=== PATIENT | female | born 1960 | race Caucasian/White ===

== ENCOUNTER 2022-01-21 12:44 | Emergency (ER) | payer OTHER, SELFPAY ==
[2022-01-21 12:47] VITALS: BP 121/80; PULSE 85; RESP 16; TEMP 36.4; O2SAT 99; BMI 20.2
--- NOTE | 2022-01-21 13:07 | ED_ITS ---
HPI - General Adult General Time Seen by Provider: 13:07 Date Seen: 01/21/22 Chief complaint: Unspecified Complaint, Adult Stated complaint: Wants prescription for Adderall refilled Time Seen by Provider: 01/21/22 12:46 Source: patient Mode of arrival: ambulatory Limitations: no limitations History of Present Illness HPI narrative: Patient is a 61 white female who ran out of her Adderall. She has tried to contact the clinic but was told wait until Sunday, she is concerned about waiting as she has been on it for over a year and done very well. She has seen Abdoulaye Thomas in the clinic, she gets her meds at [facility] and she was unable to get these filled for some reason. She comes to ER for this. The medicines been working well for her, no complaints no side effects. She feels should get the prescription filled early next week and she is fine to just get a few tablets to get through the weekend Related Data Home Medications Medication Instructions Recorded Confirmed dextroamphetamine-amphetamine 10 10 mg PO TID 01/18/22 mg tablet (Adderall) Previous Rx's Medication Instructions Recorded venlafaxine 150 mg 150 mg PO QAM #90 caps 12/10/21 capsule,extended release 24 hr (Effexor XR) Allergies Allergy/AdvReac Type Severity Reaction Status Date / Time No Known Drug Allergies Allergy Verified 01/21/22 12:47 Review of Systems Status of ROS: Reports: 6 or more systems reviewed and unremarkable except as noted in History and below [facility] Medical History (Updated 01/21/22 @ 13:01 by Velasquez Escobar MD) Anxiety Social History Smoking Status: Former smoker Do you use any of these nicotine containing products: None How often do you have a drink containing alcohol: never AUDIT-C Alcohol total score: 0 Non-prescribed substance use: denies use Exam Narrative: Exam Narrative: No exam Const: Vital Signs, click to edit/add: Vital Signs - 24 hr 01/21/22 12:47 Temperature 97.5 F L Pulse Rate [Right Pulse Oximeter] 85 Respiratory Rate 16 Blood Pressure [Ri ght Upper Arm] 121/80 Pulse Oximetry 99 Oxygen Delivery Me thod Room Air Course Vital Signs Vital signs: Initial Vital Signs Temperature 97.5 F L 01/21/22 12:47 Temperature Source Temporal Artery Scan 01/21/22 12:47 Pulse Rate 85 01/21/22 12:47 Pulse Rhythm 01/21/22 12:47 Respiratory Rate 16 01/21/22 12:47 Blood Pressure 121/80 01/21/22 12:47 Blood Pressure Mean 93 01/21/22 12:47 Blood Pressure Position Sitting 01/21/22 12:47 Pulse Oximetry 99 01/21/22 12:47 Oxygen Delivery Method 01/21/22 12:47 Vital Signs Temperature 97.5 F L 01/21/22 12:47 Pulse Rate 85 01/21/22 12:47 Respiratory Rate 16 01/21/22 12:47 Blood Pressure 121/80 01/21/22 12:47 Pulse Oximetry 99 01/21/22 12:47 Oxygen Delivery Method 01/21/22 12:47 Temperature 97.5 F L 01/21/22 12:47 Pulse Rate 85 01/21/22 12:47 Respiratory Rate 16 01/21/22 12:47 Blood Pressure 121/80 01/21/22 12:47 Pulse Oximetry 99 01/21/22 12:47 Oxygen Delivery Method 01/21/22 12:47 Medical Decision Making MDM Narrative Medical decision making narrative: Patient needs refill of her medications, she followed appropriate measures to get the refill, but unfortunate was unable to secure the refill, will get her 21 tablets of Adderall to use t.i.d. over the next few days until refill was completed by the clinic. Discharge Plan Discharge Clinical Impression: Mental health disorder Patient Disposition: Home, Self-Care Additional Instructions: Give refill next week as planned through nurse practitioner Activity Level: No Restrictions Discharge Diet: Regular Prescriptions: No Action venlafaxine [Effexor XR] 150 mg capsule,extended release 24hr 150 mg PO QAM Qty: 90 0RF dextroamphetamine-amphetamine [Adderall] 10 mg tablet 10 mg PO TID Follow Up/Referrals: Ruby Youngblood PA-C [Primary Care Provider] - Stand Alone Forms: [employer] Info Instructions
== END 2022-01-21 13:10 | disposition home or self-care (01) ==
LOC: ED 13:09
PROVIDERS: Emergency Provider Family Medicine; PCP Physician Assistant Medical
DX: F99 Mental disorder, not otherwise specified (principal); Z76.0 Encounter for issue of repeat prescription
CPT/HCPCS: 99281; 99282

== ENCOUNTER 2022-09-21 10:42 | Outpatient (CLI) | payer OTHER, SELFPAY | END 2022-09-21 10:43 | disposition home or self-care (01) | PROVIDERS: PCP Physician Assistant Medical; Visit Provider Physician Assistant Medical | DX: Z00.00 Encounter for general adult medical examination without abnormal findings (principal); E78.5 Hyperlipidemia, unspecified; R79.89 Other specified abnormal findings of blood chemistry; F41.9 Anxiety disorder, unspecified; Z13.6 Encounter for screening for cardiovascular disorders; Z11.59 Encounter for screening for other viral diseases; Z11.3 Encounter for screening for infections with a predominantly sexual mode of transmission; Z13.0 Encounter for screening for diseases of the blood and blood-forming organs and certain disorders involving the immune mechanism; Z13.1 Encounter for screening for diabetes mellitus | CPT/HCPCS: 80053; 80061; 84443; 86703; 86803 ==

== ENCOUNTER 2022-12-26 14:30 | Outpatient (CLI) | payer OTHER, SELFPAY | END 2022-12-26 14:31 | disposition home or self-care (01) | LOC: NFLDREF 12-27 16:52 | PROVIDERS: PCP Physician Assistant Medical; Referring Provider Physician Assistant Medical; Visit Provider Dermatology | DX: B00.1 Herpesviral vesicular dermatitis (principal); L98.9 Disorder of the skin and subcutaneous tissue, unspecified | CPT/HCPCS: 87070 ==

== ENCOUNTER 2023-03-08 10:30 | Outpatient (CLI) | payer OTHER, SELFPAY | END 2023-03-08 10:31 | disposition home or self-care (01) | LOC: NFLDREF 03-11 16:44 | PROVIDERS: PCP Physician Assistant Medical; Referring Provider Physician Assistant Medical; Visit Provider Physician Assistant Medical | DX: R10.9 Unspecified abdominal pain (principal) | CPT/HCPCS: 87086 ==

== ENCOUNTER 2023-07-09 14:02 | Outpatient (CLI) | payer OTHER, SELFPAY | END 2023-07-09 14:03 | disposition home or self-care (01) | LOC: LKVREF 14:03 | PROVIDERS: PCP Physician Assistant Medical; Visit Provider Physician Assistant Medical | DX: R51.9 Headache, unspecified (principal) | CPT/HCPCS: 86140 ==

== ENCOUNTER 2023-08-29 17:40 | Emergency (ER) | payer MEDICARE, OTHER, SELFPAY ==
[2023-08-29 17:53] VITALS: BP 184/83; PULSE 89; RESP 18; TEMP 36.9; O2SAT 96; BMI 22.1
--- NOTE | 2023-08-29 18:14 | ED.HA ---
HPI - Headache General Time Seen by Provider: 18:14 Date Seen: 08/29/23 Chief Complaint: Headache/Migraine Stated Complaint: Intermittent R side face pain Time Seen by Provider: 08/29/23 17:40 Source: patient and RN notes reviewed Mode of arrival: ambulatory Limitations: no limitations History of Present Illness HPI Narrative: This 63-year-old female is ambulatory into the ED with concern of right sided headache. She states subtle start in her right face, midface area, upper jaw. She will feel it as a throbbing sensation. It will then generalized down into her neck sometimes over into the right whole head. She notes no visual changes. She does have underlying TMJ but notes no increased symptoms with this. She states her face hurts when this happens, will hurt to talk, hurt to eat or drink. She has been to the dentist a couple of times, has had imaging done with dental films, nothing has been found. Her doctor cleaned out her right ear, that did not change anything. She notes no hearing changes. 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 There are no fevers or chills. It is not a sharp shooting type pain, they did bring up trigeminal neuralgia. We did discuss the continuum of headache disorders, a differential in this. This has been recurrent since June. There is maybe 1 time she felt left-sided symptoms, all other times is only been right-sided facial symptoms. Tylenol and ibuprofen do not alleviated. Her doctor did prescribe meloxicam, she tried this once or twice and it is not helped either. She will have to be off work for couple of days when the pain comes. Symptoms started today around noon. MD elicited complaint: headache Related Data Home Medications Medication Instructions Recorded Confirmed venlafaxine 150 mg 150 mg PO QAM 08/29/23 08/29/23 capsule,extended release 24 hr Previous Rx's Medication Instructions Recorded acyclovir 800 mg tablet 800 mg PO BID PRN cold sores 5 09/21/22 days #30 tabs meloxicam 15 mg tablet 15 mg PO QDAY #90 tabs 09/21/22 tretinoin 0.025 % topical cream 1 applic topical QHS #45 grams 09/21/22 (Retin-A) valacyclovir 500 mg tablet 500 mg PO DAILY #30 tabs 03/15/23 dextroamphetamine-amphetamine 10 10 mg PO BID #60 tabs 08/01/23 mg tablet (Adderall) hydroxyzine HCl 25 mg tablet 25 - 50 mg (1 - 2 x 25 mg) PO QPM 08/15/23 PRN for insomnia #180 tabs spironolactone 50 mg tablet 50 mg PO QAM #90 tabs 08/15/23 carbamazepine 100 mg 100 mg PO BID #14 caps 08/29/23 capsule,extended release [id number] Allergies Allergy/AdvReac Type Severity Reaction Status Date / Time No Known Drug Allergies Allergy Verified 08/29/23 18:02 Review of Systems Status of ROS: Reports: 6 or more systems reviewed and unremarkable except as noted in History and below [facility] Medical History Cold sore ?B00.1 - Herpesviral vesicular dermatitis (ICD-10) Depression ?F32.A - Depression, unspecified (ICD-10) Insomnia ?G47.00 - Insomnia, unspecified (ICD-10) ADHD ?F90.9 - Attention-deficit hyperactivity disorder, unspecified type (ICD-10) Anxiety ?F41.9 - Anxiety disorder, unspecified (ICD-10) Surgical History History of appendectomy (1997) ?Z90.49 - Acquired absence of other specified parts of digestive tract (ICD-10) Family History Father Colon cancer, Onset Age: 85 Bipolar disorder Family history of CABG, Onset Age: 70 Stroke Sister Diabetes Drug addiction Brother Guillain-Amite syndrome Mother Heart disease Stroke Other Anxiety disorder Depression Social History Narrative: does not drink alcohol exercises regularly- 3x/week; yoga, walking, running , licensed massage therapist 1 son non-smoker- hx of 17 pack years, quit age 33 Smoking Status: Former smoker Do you use any of these nicotine containing products: None How often do you have a drink containing alcohol: never AUDIT-C Alcohol total score: 0 Non-prescribed substance use: denies use Little interest or pleasure in doing things: not at all Feeling down, depressed, or hopeless: several days Exam Const: Vital Signs, click to edit/add: Vital Signs - 24 hr 08/29/23 17:53 Temperature 98.5 F Pulse Rate [Pulse Oximeter] 89 Respiratory Rate 18 Blood Pressure [Ri ght Upper Arm] 184/83 H Pulse Oximetry 96 Oxygen Delivery Me thod Room Air This 63-year-old female is alert, interactive, no apparent distress. She was ambulatory into the ED of her own accord. Pupils are equal round reactive, sclera clear, extraocular muscles intact. She has some cerumen in the left ear canal but right TM and canal look normal. No tenderness over her TMJs. Symmetrical facial function, no tenderness over the temporal area. Anterior nares normal. Oropharynx oral mucosa, no exudates erythema. Neck is supple, no cervical adenopathy, no thyromegaly masses or nodules. Lungs are clear, good air entry, no wheeze or crackles. CV regular rate and rhythm no murmur. Patient did ambulate in on her own. No focal neurologic deficits noted, using upper extremities without any deficits noted. Documenting provider has reviewed patient's vital signs: yes Course Course ED Course: Reviewed with patient the differential from sinus disease to such headache disorders in pain disorders like trigeminal neuralgia. Hers are not necessarily typical of a definite headache disorder that I am aware of at this time. She may ultimately need to see Neurology which will not be done emergently a out of here in the ER nor does not require this. In the meantime, will do head CT. Discussed with patient that I am doubtful that this is coming from her neck but she is interested in obtaining the cervical spine x-rays which we will do. Will get baseline blood work. Will start IV fluids and see if she does respond to IV Toradol. Can consider Reglan and Benadryl protocol next. Reevaluation(s) Time of Reevaluation #1: 20:15 Reevaluation #1: Reviewed patient's cervical spine x-ray in her head CT. She does have some mild degenerative changes in the middle of her cervical spine but again I do not think that is likely causing her headaches. She states after the Toradol she had a weird sensation where maybe felt like he was going across her face in the middle of her face, she had some numbness tingling feeling on the right side for a bit and then a sawing sensation in the mid right face. We did discuss use of possible Tegretol as a potential diagnostic and therapeutic trial. She certainly could be on the continuum of a atypical trigeminal neuralgia. We did review the normal inflammatory markers. She recollects that her doctor did a sed rate back in June and was normal as well. Vital Signs Vital signs: Initial Vital Signs Temperature 98.5 F 08/29/23 17:53 Temperature Source Temporal Artery Scan 08/29/23 17:53 Pulse Rate 89 08/29/23 17:53 Pulse Rhythm Regular 08/29/23 17:53 Pulse Strength 3+ Normal 08/29/23 17:53 Respiratory Rate 18 08/29/23 17:53 Blood Pressure 184/83 H 08/29/23 17:53 Blood Pressure Mean 116 H 08/29/23 17:53 Blood Pressure Position Sitting 08/29/23 17:53 Pulse Oximetry 96 08/29/23 17:53 Oxygen Delivery Method Room Air 08/29/23 17:53 Vital Signs Temperature 98.5 F 08/29/23 17:53 Pulse Rate 89 08/29/23 17:53 Respiratory Rate 18 08/29/23 17:53 Blood Pressure 184/83 H 08/29/23 17:53 Pulse Oximetry 96 08/29/23 17:53 Oxygen Delivery Method Room Air 08/29/23 17:53 Temperature 98.5 F 08/29/23 17:53 Pulse Rate 89 08/29/23 17:53 Respiratory Rate 18 08/29/23 17:53 Blood Pressure 184/83 H 08/29/23 17:53 Pulse Oximetry 96 08/29/23 17:53 Oxygen Delivery Method Room Air 08/29/23 17:53 Medications Administered Medications: Generic Name Dose Route Start Last Admin Trade Name Freq PRN Reason Stop Dose Admin Sodium Chloride 1,000 mls @ 1,000 mls/hr 08/29/23 18:30 08/29/23 18:30 0.9 % Sodium Chloride 1000 Ml IV 08/29/23 19:29 1,000 mls/hr .Q1H RON Administration Ketorolac Tromethamine 15 mg 08/29/23 18:25 08/29/23 18:42 Ketorolac 15 Mg/Ml Inj IVP 08/29/23 18:26 15 mg ONCE ONE Administration MDM - Headache Lab Data Attestation: I reviewed the patient's lab results. Labs: Lab Results 08/29/23 Range/Units 18:30 WBC 8.21 (4.50-11.00) K/uL RBC 4.21 (4.00-5.20) m/uL Hgb 14.2 (12.0-16.0) gm/dL Hct 41.0 (33.0-51.0) % MCV 97 (80-100) fL MCH 34 (26-34) pg MCHC 35 (32-36) gm/dL RDW Coeff of Heavenly 12.3 (11.5-15.5) % Plt Count 294 (140-440) K/uL Neut % (Auto) 72.6 H (42.0-72.0) % Lymph % (Auto) 17.3 L (20-44) % [place] % (Auto) 7.6 (0.0-11.0) % Eos % (Auto) 1.8 (0.0-7.0) % Baso % (Auto) 0.6 (0.0-3.0) % Neut # (Auto) 6.00 (1.7-7.0) K/uL Lymph # (Auto) 1.40 (0.90-2.90) K/uL [place] # (Auto) 0.60 (0.00-0.90) K/UL Eos # (Auto) 0.15 (0.00-0.50) K/uL Baso # (Auto) 0.05 (0.00-0.30) K/uL Abs Immat Gran (auto) 0.01 (0.00-0.30) K/uL Imm/Tot Granulo (auto) 0.1 % ESR 7 (2-20) mm/hr Sodium 139 (135-149) mmol/L Potassium 3.9 (3.6-5.1) mmol/L Chloride 106 (96-114) mmol/L Carbon Dioxide 28 (20-32) mmol/L Anion Gap 5 L (7-15) mEq/L BUN 13 (7-30) mg/dL Creatinine 0.7 (0.5-1.5) mg/dL Estimated Creat Clear 50.47 Estimated GFR 96 ml/min Glucose 91 (60-115) mg/dL Calcium 9.8 (8.4-10.6) mg/dL C-Reactive Protein < 0.5 L (0.5-1.0) mg/dL Imaging Data CT scan - head: Attestation: I have reviewed the pertinent imaging results. Radiologist's impression: Patient: MOY GRANDA Facility:?[facility] Patient ID:?[id number] Site Patient ID:?[id number] Site :?1960 Study:?CT Head WITHOUT-08/29/2023 7:17:04 PM Ordering Physician:JOSEE Final Report: INDICATION: Right-sided headache TECHNIQUE: Noncontrast axial CT of the head. Coronal and sagittal reformats. Bone and soft tissue algorithms. COMPARISON: No relevant comparison studies available at this institution. FINDINGS: The ventricles and cortical sulci are age-appropriate in configuration. No midline shift or mass effect, hydrocephalus or herniation. Preserved cuellar-white matter differentiation. Unremarkable white matter attenuation. No acute intracranial hemorrhage or abnormal extra-axial fluid collection. Minor calcific plaquing at the carotid siphons. Empty sella configuration. Bony calvarium appears grossly intact. Visualized paranasal sinuses and mastoid air cells are clear. Unremarkable orbits. IMPRESSION: Unremarkable CT head. No evidence of acute intracranial abnormality. Please note that all CT scans at this facility use dose modulation, iterative reconstruction, and/or weight-based dosing when appropriate to reduce radiation dose to as low as reasonably achievable. Dictated by Aide Terry MD @ 08/29/2023 7:58:36 PM (Electronic Signature) XR cervical spine: Attestation: I have reviewed the pertinent imaging results. Radiologist's impression: Patient: MOY GRANDA Facility:?[facility] Patient ID:?[id number] Site Patient ID:?[id number]. Site :?1960 Study:?XRay Spine Cervical 3 VIEWS-08/29/2023 7:12:49 PM Ordering Physician:JOSEE Final Report: Indication: HEADACHES Technique: Three views of the lumbar spine Comparison: None Findings: No acute fracture or malalignment. There is slight straightening of the normal cervical lordosis. Trace anterolisthesis of C2 on C3 and C3 on C4. Vertebral body heights are overall maintained. [id number] intervertebral disc height loss at C4-C5, C5-C6, and C6-C7 with minimal associated degenerative endplate changes. There is no significant facet arthropathy. No suspicious osseous lesions. Soft tissues are within normal limits. The visualized lungs are clear. Impression: 1. No acute fracture or malalignment. 2. Spondylitic changes of the cervical spine as detailed above. Dictated by Rigo Yao MD @ 08/29/2023 8:03:02 PM (Electronic Signature) Discharge Plan Discharge Clinical Impression: Right-sided headache, Right facial pain Patient Disposition: Home, Self-Care Condition: Stable Instructions: Acute Headache (ED), General Headache (ED) Additional Instructions: Need to schedule follow-up visit with your primary care provider, please be re-evaluated within the next week. Highly encourage referral to Neurology if you have ongoing symptoms. I have written for a short trial of Tegretol which is a medicine used in trigeminal neuralgia. If this is helping, you can talk to your primary doctor about further prescriptions. Activity Level: Activity as Tolerated Prescriptions: New carbamazepine 100 mg capsule, ER multiphase 12 hr 100 mg PO BID Qty: 14 0RF No Action acyclovir 800 mg tablet 800 mg PO BID PRN (Reason: cold sores) 5 Days Qty: 30 6RF Rx Instructions: 1 tablet twice daily for 5 days as needed for cold sore outbreaks. meloxicam 15 mg tablet 15 mg PO QDAY Qty: 90 3RF tretinoin [Retin-A] 0.025 % cream 1 applic topical QHS Qty: 45 3RF Rx Instructions: once nightly to wrinkles. Small pea size amount venlafaxine 150 mg capsule,extended release 24hr 150 mg PO QAM valacyclovir 500 mg tablet 500 mg PO DAILY Qty: 30 8RF dextroamphetamine-amphetamine [Adderall] 10 mg tablet 10 mg PO BID Qty: 60 0RF Rx Instructions: administer doses at least 4-6 hours apart hydroxyzine HCl 25 mg tablet 25 - 50 mg PO QPM PRN (Reason: for insomnia) Qty: 180 3RF spironolactone 50 mg tablet 50 mg PO QAM Qty: 90 3RF Follow Up/Referrals: Ruby Youngblood PA-C [Primary Care Provider] - Stand Alone Forms: [employer] Info Instructions
--- NOTE | 2023-08-29 18:25 | CT_ITS ---
Patient: MOY GRANDA Facility:?[facility] Patient ID:?[id number] Site Patient ID:?[id number] Site :?1960 Study:?CT-Head WITHOUT-08/29/2023 7:17:04 PM Ordering Physician:JOSEE Final Report: INDICATION: Right-sided headache TECHNIQUE: Noncontrast axial CT of the head. Coronal and sagittal reformats. Bone and soft tissue algorithms. COMPARISON: No relevant comparison studies available at this institution. FINDINGS: The ventricles and cortical sulci are age-appropriate in configuration. No midline shift or mass effect, hydrocephalus or herniation. Preserved cuellar-white matter differentiation. Unremarkable white matter attenuation. No acute intracranial hemorrhage or abnormal extra-axial fluid collection. Minor calcific plaquing at the carotid siphons. Empty sella configuration. Bony calvarium appears grossly intact. Visualized paranasal sinuses and mastoid air cells are clear. Unremarkable orbits. IMPRESSION: Unremarkable CT head. No evidence of acute intracranial abnormality. Please note that all CT scans at this facility use dose modulation, iterative reconstruction, and/or weight-based dosing when appropriate to reduce radiation dose to as low as reasonably achievable. Dictated by Aide Terry MD @ 08/29/2023 7:58:36 PM Signed by:?Aide Terry MD @08/29/2023 7:58:36 PM (Electronic Signature)
[2023-08-29] MEDS: 0.9 % SODIUM CHLORIDE 1000 ml 1,000 ML IV (18:30)
--- NOTE | 2023-08-29 18:32 | XR_ITS ---
Patient: MOY GRANDA Facility:?[facility] Patient ID:?[id number] Site Patient ID:?[id number]. Site :?1960 Study:?XRay-Spine Cervical 3 VIEWS-08/29/2023 7:12:49 PM Ordering Physician:JOSEE Final Report: Indication: HEADACHES Technique: Three views of the lumbar spine Comparison: None Findings: No acute fracture or malalignment. There is slight straightening of the normal cervical lordosis. Trace anterolisthesis of C2 on C3 and C3 on C4. Vertebral body heights are overall maintained. [id number] intervertebral disc height loss at C4-C5, C5-C6, and C6-C7 with minimal associated degenerative endplate changes. There is no significant facet arthropathy. No suspicious osseous lesions. Soft tissues are within normal limits. The visualized lungs are clear. Impression: 1. No acute fracture or malalignment. 2. Spondylitic changes of the cervical spine as detailed above. Dictated by Rigo Yao MD @ 08/29/2023 8:03:02 PM Signed by:?Rigo Yao MD @08/29/2023 8:03:02 PM (Electronic Signature)
[2023-08-29] MEDS: KETOROLAC 15 MG/ML inj IVP (18:42)
[2023-08-29 18:44] LABS: Basophils Absolute Auto 0.05 K/uL (0.00-0.30); Basophils Percent Auto 0.6 % (0.0-3.0); Eosinophils Absolute Auto 0.15 K/uL (0.00-0.50); Eosinophils Percent Auto 1.8 % (0.0-7.0); Hemoglobin* 14.2 gm/dL (12.0-16.0); Immature Granulocytes Abs Auto 0.01 K/uL (0.00-0.30); Immature Granulocytes Pct Auto 0.1 %; Lymphocytes Percent Auto 17.3 % (20-44); Mean Corpuscular HGB Conc 35 gm/dL (32-36); Mean Corpuscular Hemoglobin 34 pg (26-34); Mean Corpuscular Volume 97 fL (80-100); Monocytes Percent Auto 7.6 % (0.0-11.0); Neutrophils Percent Auto 72.6 % (42.0-72.0); Platelet Count* 294 K/uL (140-440); RDW Coefficient of Variation % 12.3 % (11.5-15.5); Red Blood Count 4.21 m/uL (4.00-5.20); White Blood Count* 8.21 K/uL (4.50-11.00)
[2023-08-29 18:58] LABS: Slide Review Reflex No
[2023-08-29 19:20] LABS: Chloride* 106 mmol/L (96-114); Sodium* 139 mmol/L (135-149)
[2023-08-29 19:21] LABS: Potassium* 3.9 mmol/L (3.6-5.1)
[2023-08-29 19:23] LABS: Creatinine* 0.7 mg/dL (0.5-1.5); Est. Creatinine Clearance* 50.47; Estimated Glomerular Filt Rate 96 ml/min
[2023-08-29 19:24] LABS: Anion Gap 5 mEq/L (7-15); Blood Urea Nitrogen* 13 mg/dL (7-30); Calcium* 9.8 mg/dL (8.4-10.6); Carbon Dioxide* 28 mmol/L (20-32); Glucose* 91 mg/dL (60-115)
[2023-08-29 19:27] LABS: C Reactive Protein* < 0.5 mg/dL (0.5-1.0)
[2023-08-29 19:49] LABS: Erythrocyte SedimentationRate* 7 mm/hr (2-20)
== END 2023-08-29 20:42 | disposition home or self-care (01) ==
PROVIDERS: Emergency Provider Family Medicine; PCP Physician Assistant Medical
DX: R51.9 Headache, unspecified (principal)
CPT/HCPCS: 36415; 70450; 72040; 80048; 85025; 85651; 86140; 96361; 96374; 99284; 99285; J1885; J7030

== ENCOUNTER 2023-09-14 09:06 | Outpatient (CLI) | payer MEDICARE, OTHER, SELFPAY ==
--- NOTE | 2023-09-14 09:15 | MR_ITS ---
Patient: MOY GRANDA Facility:?[facility] Patient ID:?[id number] Site Patient ID:?[id number]. Site :?1960 Study:?MRI-Neck Angio W/ and W/O Cont 20 CC DOATERM-09/14/2023 10:52:43 AM Ordering Physician:?MARIE BELTRÁN Final Report: INDICATION: Headaches. TECHNIQUE: [id number] and postcontrast MR images of the neck. COMPARISON: None. FINDINGS: The innominate and subclavian arteries are widely patent. The common carotid arteries are widely patent. The internal carotid arteries are widely patent. The vertebral arteries are codominant and widely patent. IMPRESSION: Unremarkable MRA of the neck. Dictated by Alnoso Henry MD @ 09/14/2023 11:21:25 AM Signed by:?Alonso Henry MD @09/14/2023 11:21:25 AM (Electronic Signature)
--- NOTE | 2023-09-14 10:15 | MR_ITS ---
Patient: MOY GRADNA Facility:?[facility] Patient ID:?[id number] Site Patient ID:?[id number]. Site :?1960 Study:?MRI-Head MRA W/O-09/14/2023 10:52:08 AM Ordering Physician:?MARIE BELTRÁN Final Report: INDICATION: Headaches. TECHNIQUE: Qnyl-[id number] MRA images of the head. COMPARISON: CT brain 08/29/2023. FINDINGS: The internal carotid, middle cerebral, and anterior cerebral arteries are widely patent. The vertebral, basilar, and posterior cerebral arteries are widely patent. origin of the right posterior cerebral artery. No intracranial aneurysm or high-flow vascular malformation. IMPRESSION: Unremarkable MRA of the head. Dictated by Alonso Henry MD @ 09/14/2023 11:19:11 AM Signed by:?Alonso Henry MD @09/14/2023 11:19:11 AM (Electronic Signature)
== END 2023-09-14 09:07 | disposition home or self-care (01) ==
LOC: MRI 09:09
PROVIDERS: PCP Physician Assistant Medical; Visit Provider Physician Assistant Medical
DX: M54.2 Cervicalgia; R68.84 Jaw pain
CPT/HCPCS: 70544; 70549; A9575

== ENCOUNTER 2024-02-20 10:58 | Outpatient (CLI) | payer MEDICARE, OTHER, SELFPAY | END 2024-02-20 10:59 | disposition home or self-care (01) | PROVIDERS: PCP Physician Assistant Medical; Visit Provider Physician Assistant Medical | DX: Z00.00 Encounter for general adult medical examination without abnormal findings (principal); E78.5 Hyperlipidemia, unspecified; Z13.1 Encounter for screening for diabetes mellitus; Z13.0 Encounter for screening for diseases of the blood and blood-forming organs and certain disorders involving the immune mechanism; Z11.59 Encounter for screening for other viral diseases; Z11.3 Encounter for screening for infections with a predominantly sexual mode of transmission | CPT/HCPCS: 80053; 80061; 82306; 84443; 86703; 86803; 87624; 87625; 88141; 88142 ==

== ENCOUNTER 2024-03-24 10:22 | Outpatient (CLI) | payer MEDICARE, OTHER, SELFPAY ==
--- NOTE | 2024-03-24 11:15 | W.ANESCHARGE ---
Anesthesia Charges Start Date/Time Anesthesia Start Date: 03/24/24 Anesthesia Start Time: 11:20 Stop Date/Time Anesthesia Stop Date: 03/24/24 Anesthesia Stop Time: 11:58
--- NOTE | 2024-03-24 12:08 | W.ANESCHARGE ---
Anesthesia Charges Start Date/Time Anesthesia Start Date: 03/24/24 Anesthesia Start Time: 11:20 Stop Date/Time Anesthesia Stop Date: 03/24/24 Anesthesia Stop Time: 11:58
== END 2024-03-24 10:23 | disposition home or self-care (01) ==
LOC: OP CLINIC 10:24
PROVIDERS: PCP Physician Assistant Medical; Visit Provider Internal Medicine
DX: Z12.11 Encounter for screening for malignant neoplasm of colon (principal); K57.30 Diverticulosis of large intestine without perforation or abscess without bleeding; R10.13 Epigastric pain
CPT/HCPCS: 00813; 43239; 45378; 88305; J2704; J3490

== ENCOUNTER 2024-05-22 13:39 | Outpatient (CLI) | payer MEDICARE, OTHER, SELFPAY ==
--- NOTE | 2024-05-22 14:00 | CRLHL7_ITS ---
For Patients: As a result of the Century Cures Act, medical imaging exams and procedure reports are released immediately into your electronic medical record. You may view this report before your referring provider. If you have questions, please contact your health care provider. XR DXA Bone Mineral Density (BMD) Reason for exam: Screening, encounter for general adult medical examination. Current height (in): 65. Weight (lb): 145. Menopause age: 48. Ethnicity: White. 1. Have you had a previous hip or vertebral fracture? No. 2. Have you had any fractures during your adult life which did not result from significant trauma (e.g., auto accident)? No. 3. Did either of your parents have a hip fracture? Yes. 4. Do you smoke? No. 5. Have you ever taken Glucocorticoids? No. 6. Do you have rheumatoid arthritis? No. 7. Do you have secondary osteoporosis? No. 8. Do you drink 3 or more alcoholic drinks per day? No. 9. Are you being treated for osteoporosis? No. 10. Have you ever taken any of the following medications: Actonel, Evista, Fosamax, Miacalcin, Reclast, Boniva, Forteo, HRT (i.e. estrogen/hormone therapy), Protelos, Prolia, Vitamin D, Calcium, other ??? please specify. ANSWER: Yes, vitamin D. 11. Do you have any of the following medical conditions: Anorexia or bulimia, asthma or emphysema, end stage renal disease, hyperparathyroidism, any seizure disorders, cancer, inflammatory bowel diseases, hysterectomy, other ??? please specify. ANSWER: No. 12. What was your maximum height (inches)? 66. 13. Do you perform weight bearing exercise regularly? Yes. 14. Do you regularly consume dairy products? Yes. 15. Do you drink caffeinated beverages? Yes. 16. At what age did your period start? 10. 17. Are you premenopausal? No. 18. How many full term pregnancies have you had? 1. 19. Have you ever missed your period for more than 6 months in a row (not including or menopause)? No. TECHNIQUE: Bone mineral density study was performed using the [employer]. FINDINGS: The results of the study expressed as bone mineral density (BMD) are as follows: Lumbar spine L1 to L4: BMD: 0.742 g/cm2. T-score: -2.8. Z-score: -1.0. Neck Left: BMD: 0.512 g/cm2. T-score: -3.0. Z-score: -1.5. Right: BMD: 0.507 g/cm2. T-score: -3.1. Z-score: -1.5. Total Left: BMD: 0.636 g/cm2. T-score: -2.5. Z-score: -1.2. Right: BMD: 0.678 g/cm2. T-score: -2.2. Z-score: -0.9. IMPRESSION: Osteoporosis. Willy Lee M.D. Diagnostic Radiologist [email or web address] RAMON/blayne / bM/Dictated by: Willy Lee MD @ 05/22/2024 3:21:00 PM (Electronically Signed)
--- NOTE | 2024-05-22 14:40 | CRLHL7_ITS ---
For Patients: As a result of the Century Cures Act, medical imaging exams and procedure reports are released immediately into your electronic medical record. You may view this report before your referring provider. If you have questions, please contact your health care provider. BILATERAL SCREENING MAMMOGRAM WITH COMPUTER-AIDED DETECTION AND TOMOSYNTHESIS TECHNIQUE: CC and MLO views were obtained. These mammographic images have been obtained using full-field digital technique. These mammographic images were interpreted with the benefit of computer-aided detection. Breast tomosynthesis was used in this interpretation. COMPARISON FILM: 02/18/13. FINDINGS: The breasts are heterogeneously dense, which may obscure small masses. IMPRESSION: There is no radiographic evidence for malignancy. ASSESSMENT: BI-RADS Category 2: Benign RECOMMENDATION: Routine screening mammogram in 1 year. A lay language report of this examination will be provided to the patient. WILLY AGUILAR M.D. Diagnostic Radiologist [email or web address] Transcribed: 1:[address]/Dictated by: Willy Aguilar MD @ 05/23/2024 11:06:00 AM (Electronically Signed)
== END 2024-05-22 13:40 | disposition home or self-care (01) ==
LOC: RAD 13:41
PROVIDERS: PCP Physician Assistant Medical; Visit Provider Physician Assistant Medical
DX: Z12.31 Encounter for screening mammogram for malignant neoplasm of breast (principal); R92.333 Mammographic heterogeneous density, bilateral breasts; Z13.820 Encounter for screening for osteoporosis; M85.88 Other specified disorders of bone density and structure, other site; Z78.0 Asymptomatic menopausal state
CPT/HCPCS: 77063; 77067; 77080

== ENCOUNTER 2024-12-08 13:00 | Outpatient (RCR) | payer MEDICARE, OTHER, SELFPAY ==
--- NOTE | 2024-06-02 17:59 | PT.OPEX ---
Please sign the attached physical therapy evaluation. Thank you. PT [facility] Eval PT [facility] Outpatient Eval Start: 05/30/24 14:20 Freq: Status: Active Protocol: Document 06/02/24 10:54 TLQ (Rec: 06/02/24 17:51 TLQ [id number]) E-signed By Natali Charles DPT Physical Therapy Outpatient Evaluation Insurance Information Recert Due Date 08/31/24 Insurance Name Medicare B Insurance Information/Comments [employer] Medicare Supplement Medical Diagnosis Plantar fascial fibromatosis M72.2 Treating Diagnosis Pain in left foot M79.672 Muscle weakness M62.81 Abnormal posture R29.3 Referring MD Ruby Youngblood PA-C Subjective Subjective Renee is here today to address plantar fasciitis in her foot over the past 3-4 months. She states she has had this pain in the past. 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 However, this time she has been unable to find relief with these modalities. She has pain with initial steps in the morning, will also have pain intermittently throughout the day. She also has pain in the evenings as she gets tired, tries to wear her shoes for support but states she does not enjoy wearing shoes inside. She wonders if she needs to wear different, more supportive shoes. Later during evaluation Renee reports her outside three toes can feel numb at times. Renee states she is hypermobile, has a flat back, and has some sacral plexus concerns that may impact her rehab. She also states that she has had a lot stress in her life recently with being sick. Renee states she enjoys biking, has some pelvic pain associated with pressure from the bike seat. She wonders if her biking posture could also be addressed, she isn't able to bike as long as she would like to for physical activity. She denies other pelvic floor concerns (urgency , incomplete emptying, pain). *06/02/24 PT evaluation 10 minutes started late due to patient completing initial clinic intake forms upon arrival* Pain Comments up to 8/10 at worst location: walking Current Work Status Head [employer] Occupation Self-employed massage therapist Precautions Treatment Precautions/Contraindications PMHx: osteoporosis, headaches, hyperlipidemia, depression/ anxiety Therapy Limitations/Systems Review Not Limited Objective Other/Pertinent Objective RANGE OF MOTION - ANKLE dorsiflexion: R 8 degrees, L 15 degrees plantarflexion: R 65 degrees, L 70 degrees inversion: R 30 degrees, L 35 degrees eversion: R 10 degrees, L 10 degrees great toe extension: R 60 degrees, L 55 degrees STRENGTH dorsiflexion: R 5/5, L 4+/5 plantarflexion (SLHR): R 10 reps fatigues, L 10 reps fatigues/tightness in calf inversion: R 4+/5, L 4+/5 eversion: R 5/5, L 4+/5 PALPATION tender on L at medial plantar calcaneus POSTURE mild pes planus BL JOINT MOBILITY initial mild hypomobility with posterior talocrural glide, improves with repetitive mobs SPECIAL TESTS - FOOT/ANKLE talar tilt: negative, improved symptoms with lateral tilt Tarsal tunnel test: negative GAIT without A.D. BALANCE single limb stance: increased ankle strategy on L, medial longitudinal arch collapse Assessment Assessment/Impression Renee is a 63-year-old female who presents to physical therapy to address plantar fasciitis symptoms on her left foot of three months duration . Patient states she has experienced similar symptoms in the past that resolved with self treatment involving ice, massage, stretching, and strengthening. With her current episode of symptoms she has been unable to find relief with these modalities. She reports pain in the left foot with initial weight bearing in the morning as well as intermittently throughout the day during gait. Mild talocrural joint hypomobility observed in clinic today but improved quickly with repetitive mobilizations, patient noted an improvement in symptoms with lateral talar tilt. In addition to joint mobility restrictions, she demonstrates ankle muscle weakness, especially with plantarflexion. Other observations include impaired single limb balance and pes planus foot posture. Patient symptoms likely due to plantar fasciitis due to history but will continue to monitor for tarsal tunnel syndrome due to report of intermittent numbness in toes. Patient also brought up concerns for lower extremity alignment and pelvic pain when riding a bike , due to time constraints these concerns will be address at an upcoming visit. All examination findings were reviewed with the patient today. Discussed benefits and goals of physical therapy; patient verbalized agreement with POC. She was instructed through an initial HEP. Renee will benefit from skilled physical therapy appropriate to address the concerns as indicated above. Primary Functional Limitations left foot plantar pain, ankle muscle weakness, pain with walking, impaired balance Plan of Care Rehabilitation Potential Good Physical Therapy Goals In 4 weeks: - Renee will report a reduction in pain associated with initial weight bearing from 8/ 10 to 5/10 for improved tolerance to gait in the morning. - Renee will complete 15 DLHR with wall support pain-free to indicate improvements in plantarflexion strength. - Renee will have good adherence to her HEP to progress skilled interventions . In 8-10 weeks: - Renee will report <3/10 pain associated with gait for improved tolerance to ADL's. - Renee will demonstrate 15 SLHR bilaterally for plantarflexion strength required for pain-free gait and stair navigation. - Renee will have good adherence to her HEP in order to manage symptoms outside of formal PT. Treatment Plan/Direct Interventions Electrical Stimulation,Gait Training,Ice/Cold/ Vasopneumatic,Joint Mobilization,Manual Therapy, Neuromuscular Re-ed,Self-Care/ Home Management,Therapeutic Activities,Therapeutic Exercises Frequency/Duration 1x/week for 8-10 weeks Patient Will Be Discharged From Therapy Completion of LTG(s),Skills Plateau,Independent w/HEP, Independently Progressing Evaluation Billing Untimed Code Treatment Minutes 45 Complexity Low Certification Information Initial Certification Date 06/02/24 Ending Certification Date 08/31/24 Provider Signature Required Yes Provider Signature Shows Agreement With POC & Medical Necessity Physician NPI Number Write NPI# Here Physician Comment/Change : Physician Signature & Date Requested Please Sign/Date Here
--- NOTE | 2024-09-01 17:26 | PT.OP2DDNX ---
Please sign the attached physical therapy evaluation. Thank you. PT [facility] 2nd Diagnosis Daily Note PT [facility] Outpatient 2nd Diag Daily Note Start: 09/01/24 08:17 Freq: Status: Active Protocol: Document 09/01/24 08:18 TLQ (Rec: 09/01/24 17:19 TLQ [id number]) E-signed By Natali Charles DPT PT [facility] 2nd Diagnosis Daily Note Visit Information Note Type 2nd Diagnosis Daily Note, Evaluation-2nd Diagnosis Visit Number 1 Insurance Information Recert Due Date 11/30/24 Insurance Name Medicare B Insurance Information/Comments [employer] Medicare Supplement Medical Diagnosis Cervicalgia M54.2 Pain in right elbow M25.521 Pain in left elbow M25.522 Treating Diagnosis Cervicalgia M54.2 Stiffness in cervical spine M25.60 Right elbow pain M25.521 Left elbow pain M25.522 Imaging Report Information X-ray of cervical spine completed on 08/29/23 with the following findings indicated per radiology report: No acute fracture or malalignment . There is slight straightening of the normal cervical lordosis. Trace anterolisthesis of C2 on C3 and C3 on C4. Vertebral body heights are overall maintained. Mild-to- moderate intervertebral disc height loss at C4-C5, C5-C6, and C6-C7 with minimal associated degenerative endplate changes. There is no significant facet arthropathy. No suspicious osseous lesions. Soft tissues are within normal limits. The visualized lungs are clear. 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 When she gets up in the mornings she feels like she has wood blocks in her neck that limit her range of motion. She tries to self- massage her neck for pain relief. She feels like her neck tenses up throughout the work day. She notices increased pressure in her suboccipitals and forehead if her neck gets really tight. She denies radicular symptoms. She has also started having pain in both of her elbows, right more than left, started about 3 months ago. Elbow pain is only present when she leans or puts pressure on her elbows. She especially notices this when pushing up to sit up in bed in the mornings. Pain is located in the back of her elbows. She does not notice increased pain in her elbows when at work. Works as a massage therapist. PMHx: osteoporosis, headaches, hyperlipidemia, depression/ anxiety, ADHD Pain Comments Neck: 8/10 extreme tightness R/L elbow: up to 10 Home Exercise Home Exercise Comments Access Code: [email or web address] URL: [email or web address] Date: 09/01/2024 Prepared by: Natali Charles Exercises: - Supine Chin Tuck - 1-2 x daily - 7 x weekly - 5 reps - 10 seconds hold - Ulnar Nerve [place]- Full Arm - 3-5 x daily - 7 x weekly - 6-8 reps Objective Other/Pertinent Objective RANGE OF MOTION - CERVICAL flexion: 40 degrees, tight extension: 45 degrees rotation: R 70 degrees, L 48 degrees tight RANGE OF MOTION - ELBOW R: -5-150 degrees L: -8-150 degrees STRENGTH - CERVICAL flexion: 4+/5 extension: 4+/5 BL lateral flexion: 4+/5 BL DNF endurance: 30 seconds, fatigues STRENGTH - UPPER EXTERMITY elbow flexion: 5/5 BL elbow extension: 5/5 BL wrist flexion: 5/5 BL wrist extension: 5/5 BL PALPATION cervical - tender along L articular pillar; L>R cervical extensors, upper trap elbow - cubital tunnel tenderness BL, R>L JOINT MOBILITY hypomobile lower C-spine with UPA, L>R decreased elbow sxs with elbow inferior glide BL SPEICAL TESTS Vertebral artery: negative Sharp-robert: negative Spurling's: positive for increased pain on L, non- radicular Quadrant: negative Cervical distraction: no change in symptoms Tinel's sign (elbow): positive R>L ULTT: positive for ulnar nerve on R Valgus/varus stress tests: negative BL Patient Instructed in Risks/Benefits Yes Therapeutic Exercise Therapeutic Exercise Minutes (minutes) 5 Therapeutic Exercise: To Restore prepared and instructed Functional Status through initial HEP: - supine chin tucks x 5 reps x 10 second holds - ulnar nerve glides x 6-8 reps - patient education: nerve healing principles Treatment Minutes Untimed Code Treatment Minutes 35 Timed Code Treatment Minutes 5 Total Treatment Time 40 2nd Diagnosis Billing Complexity-2nd Diagnosis Low Assessment/Impression Assessment/Impression Renee is a 64-year-old female who presents to physical therapy to address cervicalgia with mobility deficits and symptoms of bilateral elbow pain during transitional movements. Patient is known to evaluating physical therapist as she recently completed skilled interventions for plantar fasciitis with a positive response to treatment . Renee reports cervicalgia upon waking up in the morning and following prolonged postures during her profession as a massage therapist. When pain worsens she can experience headaches. Cervical ROM most limited with left rotation in clinic today, hypomobility present with joint play assessments. Tenderness present along L articular pillar, increase muscle tone palpated in L cervical extensors and upper trap. No radicular symptoms present at this time. Over the past three months, Renee has also experienced bilateral posterior elbow pain, right > left, that is present when she is weightbearing on her elbows. Symptoms likely due to ulnar nerve irritation based on response to ULTT and Tinel' s sign at elbow. Symptoms are localized to her elbows at this time and improved with mobilization, symptoms do not radiate into her wrist/hand. Today's objective examination was limited by time, plan to further assess symptoms at upcoming visit. All examination findings were reviewed with the patient today. Discussed benefits and goals of physical therapy; patient verbalized agreement with POC. Patient was provided with a printout of her HEP. Renee will benefit from skilled physical therapy interventions to decrease cervicalgia and elbow pain for improved ROM and tolerance to transitional movements. Primary Functional Limitations neck pain, stiffness, elbow pain, pushing up to sit Plan of Care Physical Therapy Goals In 4 weeks: - Patient will report a subjective reduction in cervicalgia from 8/10 to <6/10 for improved tolerance to prolonged postures at work. - Patient will tolerate propping on elbows with <5/10 pain for improved tolerance to transitional movements. In 8-10 weeks: - Patient will demonstrate cervical ROM that is WFL for improved mobility when driving . - Patient will be able to transition up to sit from side sit with <3/10 pain in BL elbows for improved tolerance to upper extremity weight bearing. - Patient will demonstrate cervical muscle strength 5/5 for improved tolerance to prolonged postures at work. - Patient will demonstrate good adherence to her HEP in order to manage symptoms outside of formal PT. Daily Plan of Care Continue per POC Daily Plan of Care Comments POC: 1x/week for 8-10 weeks Cervical MT Cervical strength/AAROM Elbow mobs Ulnar nerve mobility
--- NOTE | 2024-11-27 11:55 | PT.OPDNX ---
Please review and sign the attached physical therapy progress note. Thank you. PT [facility] Daily Note PT [facility] Daily Note Start: 05/30/24 14:20 Freq: Status: Active Protocol: Document 11/27/24 07:19 TLQ (Rec: 11/27/24 11:49 TLQ [id number]) E-signed By Natali Charles DPT PT [facility] Daily Progress Note Visit Information Note Type Daily Note,Recert/Progress Note Visit Number 7 Insurance Information Recert Due Date 11/30/24 Insurance Name Medicare B Insurance [employer] Medicare Supplement Information/Comments Medical Diagnosis Cervicalgia M54.2 Pain in right elbow M25.521 Pain in left elbow M25.522 Treating Diagnosis Cervicalgia M54.2 Stiffness in cervical spine M25.60 Right elbow pain M25.521 Left elbow pain M25.522 Imaging Report X-ray of cervical spine completed on 08/29/23 with the Information following findings indicated per radiology report: No acute fracture or malalignment. There is slight straightening of the normal cervical lordosis. Trace anterolisthesis of C2 on C3 and C3 on C4. Vertebral body heights are overall maintained. Mild-to- moderate intervertebral disc height loss at C4-C5, C5- C6, and C6-C7 with minimal associated degenerative endplate changes. There is no significant facet arthropathy. No suspicious osseous lesions. Soft tissues are within normal limits. The visualized lungs are clear. Referring MD Ruby Youngblood PA-C Subjective Subjective Renee states she is still working on her elimination diet for her digestive system. 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 She thinks her elbow is getting a little better. She feels like her right arm gets weak when she is working with her clients. She is not using her elbows for massages right now. She has been able to manage her neck pain with her exercises. Pain Comments R/L elbow: up to 11/27 with pressure Precautions Treatment PMHx: osteoporosis, headaches, hyperlipidemia, Precautions/ depression/anxiety, ADHD Contraindications Home Exercise Home Exercise Access Code: [email or web address] Comments URL: [email or web address] Date: 11/27/2024 Prepared by: Natali Charles Exercises: - Ulnar Nerve Flossing - 3-5 x daily - 7 x weekly - 6- 8 reps - Seated Shoulder Shrugs - 1-2 x daily - 7 x weekly - 10 reps - Seated Shoulder Rolls - 1-2 x daily - 7 x weekly - 10 reps - Standing Tricep Extensions with Resistance - 1 x daily - 5 x weekly - 2-3 sets - 10 reps - red resistance - Shoulder Extension with Resistance - 1 x daily - 5 x weekly - 2-3 sets - 10 reps - red resistance - Standing Side Plank on Wall - 1 x daily - 5 x weekly - 2-3 reps - 30 seconds hold - Seated Isometric Cervical Flexion - 1 x daily - 7 x weekly - 5 reps - 10 seconds hold - Seated Isometric Cervical Extension - 1 x daily - 7 x weekly - 5 reps - 10 seconds hold - Seated Isometric Cervical Sidebending - 1 x daily - 7 x weekly - 5 reps - 10 seconds hold - Push-Up on Counter - 1 x daily - 5 x weekly - 2-3 sets - 8-12 reps Objective Other/Pertinent RANGE OF MOTION - CERVICAL Objective flexion: 55 degrees extension: 62 degrees rotation: 60 degrees BL STRENGTH - CERVICAL flexion: 4+/5 extension: 4+/5 BL lateral flexion: 4+/5 BL Patient Instructed Yes in Risks/Benefits Therapeutic Exercise Therapeutic Exercise 14 Minutes (minutes) Therapeutic Exercise - seated cervical isometrics: lateral flexion, flexion, : To Restore and extension x 5 reps each x 5-10 second holds, Functional Status verbally reviewed today - ulnar nerve flossing x 6-8 reps each, completed with lateral cervical flexion today - seated shoulder shrugs x 10 reps, completed with v/c for breathing - seated shoulder rolls x 10 reps - standing tricep extensions with anchored RTB x 10 reps - shoulder extensions with anchored RTB x 10 reps - counter push up (tricep), focus on protective end range (avoid elbow hyperextension) x 10 reps (+HEP) Manual Therapy Techniques Manual Therapy 28 Minutes (minutes) Manual Therapy - supine elbow distraction in 90-deg. flexion, symptom Techniques relief - skilled STM to cervical extensors and UT bilaterally, completed in prone - IASTM: patient educated on potential risks/benefits with verbal consent provided for treatment, performed IASTM to distal triceps BL - patient educated on potential risks/benefits of kinesiotape to improve elbow mobility, verbally consented to application of tape with verbal education on wear instructions provided, applied 1 I-strip to R/L elbow dorsally; instructed patient on self-application Treatment Minutes Timed Code Treatment 42 Minutes Total Treatment Time 42 Billing Units Manual Therapy Units 2 Therapeutic Exercise 1 Units Assessment/Impression Assessment/ Renee returns to physical therapy today, her most recent Impression PT visit on 10/29/24. She reports a subjective improvement in her elbow symptoms, still experiences increased pain with deep pressure. She is able to complete the majority of her work activities without deep pressure to her elbows. At this time she is able to manage her cervicalgia symptoms with her HEP. Focused on bilateral elbow symptoms in clinic today. Educated patient on IASTM with verbal consent for treatment, performed at BL triceps with good response. Reviewed interventions for nerve mobility, self-STM, and tricep strengthening. Renee has a reported history of hypermobility, instructed through countertop push- ups with emphasis on motor control to prevent elbow hyperextension at end-range, patient demonstrates good control when concentrated; this will be beneficial as she frequently bears weight through her upper extremities for her profession. Reapplied kinesiotape to bilateral elbows which decreases patient's symptom intensity with weightbearing. Provided patient with updated handout of her HEP. Renee will benefit from skilled physical therapy interventions to decrease bilateral elbow pain for improved tolerance to transitional movements and work related tasks. Primary Functional neck pain, stiffness, elbow pain, pushing up to sit Limitations Plan of Care Physical Therapy In 4 weeks: Goals - Patient will report a subjective reduction in cervicalgia from 8/10 to <6/10 for improved tolerance to prolonged postures at work. MET - Patient will tolerate propping on elbows with <5/10 pain for improved tolerance to transitional movements. PROGRESSING In 8-10 weeks: - Patient will demonstrate cervical ROM that is WFL for improved mobility when driving. MET - Patient will be able to transition up to sit from side sit with <3/10 pain in BL elbows for improved tolerance to upper extremity weight bearing. PROGRESSING - Patient will demonstrate cervical muscle strength 5/5 for improved tolerance to prolonged postures at work. PROGRESSING - Patient will demonstrate good adherence to her HEP in order to manage symptoms outside of formal PT. Daily Plan of Care Continue per POC Daily Plan of Care Cervical strength Comments Elbow mobs Ulnar nerve mobility Postural education Recertification Information Recertification 11/30/24 Start Date Recertification Due 02/28/25 Date Reasons to Continue See assessment above. Skilled Therapy Rehabilitation Good. Potential Continued Plan of Therapeutic exercise Care and Therapeutic activity Interventions Manual therapy Neuromuscular re-education Patient education Provider Signature POC & Medical Necessity Shows Agreement With Physician Comment/ Comment or Changes Change Physician NPI Number #
== END 2025-04-07 23:59 | disposition home or self-care (01) ==
PROVIDERS: PCP Physician Assistant Medical; Visit Provider Physician Assistant Medical
DX: M72.2 Plantar fascial fibromatosis (principal); M54.2 Cervicalgia; M25.521 Pain in right elbow; M25.522 Pain in left elbow; M79.672 Pain in left foot; Z51.89 Encounter for other specified aftercare
CPT/HCPCS: 97110; 97140; 97161

== ENCOUNTER 2025-02-19 17:22 | Outpatient (CLI) | payer MEDICARE, OTHER, SELFPAY ==
--- NOTE | 2025-02-19 17:30 | CRLHL7_ITS ---
For Patients: As a result of the Century Cures Act, medical imaging exams and procedure reports are released immediately into your electronic medical record. You may view this report before your referring provider. If you have questions, please contact your health care provider. CLINICAL INDICATION: Right foot pain. COMPARISON IMAGING STUDIES: None. TECHNICAL: Noncontrast MRI of the right foot. Axial, sagittal and coronal T1, PD and STIR images. 1.5 Eli MR scanner. FINDINGS: OSSEOUS STRUCTURES: Bipartite medial sesamoid bone with internal bone marrow edema. Subchondral bone marrow edema involving the 1st metatarsal head relates to grade 4 full-thickness cartilage abnormality. No metatarsal bone stress fracture. No Freiberg`s infraction. JOINT SPACES: First MTP joint degenerative changes. Subchondral bone marrow edema involving the 1st metatarsal head centrally relates to grade 4 cartilage erosion. No excessive joint fluid. Second through 5th MTP joints are maintained. Interphalangeal joints are maintained. Degenerative changes of the 4th and 5th TMT articulations with subchondral cystic change. LIGAMENTS: The Lisfranc ligament is intact. TMT joint alignment is maintained. The collateral ligaments of the MTP joints are intact. TENDONS AND MUSCLES: The flexor and extensor tendons are intact. No muscle atrophy or edema. SOFT TISSUES: The plantar aponeurosis at the forefoot level is intact. No excessive intermetatarsal bursal fluid. No definite Menchaca`s neuroma. IMPRESSION: 1. 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 2. Bipartite medial sesamoid bone with internal bone marrow edema suggesting stress change. 3. No metatarsal bone stress change or metatarsal bone stress fracture. 4. Degenerative changes of the 4th and 5th TMT articulations. Dictated by Vargas Linares MD @ 02/20/2025 1:08:37 PM (Electronically Signed)
== END 2025-02-19 17:23 | disposition home or self-care (01) ==
LOC: MRI 17:22
PROVIDERS: PCP Physician Assistant Medical; Visit Provider Physician Assistant Medical
DX: M79.671 Pain in right foot (principal); M19.071 Primary osteoarthritis, right ankle and foot; G89.29 Other chronic pain
CPT/HCPCS: 73718

== ENCOUNTER 2025-02-27 15:32 | Outpatient (CLI) | payer MEDICARE, OTHER, SELFPAY | END 2025-02-27 15:33 | disposition home or self-care (01) | PROVIDERS: PCP Physician Assistant Medical; Visit Provider Physician Assistant Medical | DX: Z00.00 Encounter for general adult medical examination without abnormal findings (principal); L71.0 Perioral dermatitis | CPT/HCPCS: 80053; 82306; 82607; 82728; 84443; 86038; 86140; 86200; 86703; 86803; 86812; 87529 ==